=== PATIENT | female | born 1970 | race Caucasian/White ===

== ENCOUNTER → 2024-07-26 11:59 | Outpatient (CLI) | payer BC, SELFPAY ==
--- NOTE | 2024-07-26 12:00 | DI.US.S_ITS ---
PROCEDURE: US BREAST LT LIMITED COMPARISON: Mammogram 03/08/2023, 01/26/2021, 08/15/2018, 09/08/2016, 09/08/2015 INDICATIONS: There are stable postsurgical changes in the left breast. Status post left breast lumpectomy. No mammogram 04/27/2023, 04/30/2021, 03/26/2020, 02/07/2019, 01/31/2019, 02/14/2018, 01/30/2018 FINDINGS: There postsurgical changes in the by about in the bilateral breasts from prior reduction mammoplasty. No status post bilateral reduction mammoplasty. No mammogram 12/21/2021, 12/21/2020, 09/03/2019, 04/09/2018 IMPRESSION: Mammogram 11/30/2022, 06/11/2021, 02/08/2018, 11/24/2016, 08/22/2014 Dictated by: Marian Vizcarra M.D.,Ph.D. on 07/26/2024 at 12:56 Approved by: Marian Vizcarra M.D.,Ph.D. on 07/26/2024 at 14:12
--- NOTE | 2024-07-26 12:00 | DI.MG.S_ITS ---
UNILATERAL LEFT DIGITAL DIAGNOSTIC MAMMOGRAM 3D/2D WITH ADDITIONAL VIEWS: 07/26/2024 CLINICAL: Additional evaluation requested from prior study. Comparison is made to exams dated: 02/23/2024 mammogram - [facility] and 03/08/2022 mammogram - [facility]. There are scattered areas of fibroglandular density (category b / 25%-50% glandular tissue). There is a focal asymmetry in the left breast at 3 o'clock posterior depth. This is seen in additional views. No other significant masses or calcifications are seen in the breast. IMPRESSION: INCOMPLETE: NEED ADDITIONAL IMAGING EVALUATION The focal asymmetry in the left breast is indeterminate. An ultrasound is recommended for further evaluation and is scheduled to immediately follow this examination. Based on the Tyrer Cuzick model (a risk assessment model) the patient's lifetime risk is 10.4% and her 10 year risk is 3.2%. According to the ACR, ACS, and NCCN guidelines, an annual breast MRI exam along with mammogram is recommended if the patient's lifetime risk is 20% or greater. This exam was interpreted at Station ID: [id number]. NOTE: For mammograms, a report in lay terms will be sent to the patient. Approximately 15% of breast malignancies will not be visualized mammographically. In the management of a palpable breast mass, a negative mammogram must not discourage biopsy of a clinically suspicious lesion. Electronically Signed By: Marian Vizcarra M.D., Ph.D. eb/:07/27/2024 17:08:01 letter sent: Additional Imaging Needed ACR BI-RADS Category 0: Incomplete: Need Additional Imaging Evaluation
--- NOTE | 2024-07-26 12:45 | DI.US.S_ITS ---
Patient Name: TERENCE DENNY date: 1970 Sex: F Attending Physician: Sachin Indications: Date: 07/27/2024 17:10 At the request of: GEORGE URIBE Procedure: US breast LT limited LIMITED ULTRASOUND OF LEFT BREAST: 07/26/2024 CLINICAL: Patient returns today to evaluate a focal asymmetry in the left breast. Comparison is made to exams dated: 07/26/2024 mammogram - [facility], 02/23/2024 mammogram - [facility], and 03/08/2022 mammogram - [facility]. Color flow and real-time ultrasound of the left breast 3 o'clock region were performed. Santamaria scale images of the real-time examination were reviewed. There are benign clustered microcysts in the left breast at 3 o'clock 15 cm from the nipple measuring up to 1.2 cm. This correlates with mammography findings. IMPRESSION: BENIGN Left breast 1.2 cm clustered microcysts at 3 o'clock are benign. No mammographic or sonographic evidence of malignancy. A 1 year screening mammogram is recommended. Findings and recommendations were conveyed to the patient during today's evaluation. This exam was interpreted at Station ID: [id number]. Electronically Signed By: Marian Vizcarra M.D., Ph.D. eb/:07/27/2024 17:10:22 letter sent: Normal Exam ACR BI-RADS Category 2: Benign
== END ==
PROVIDERS: PCP Family Medicine; Referring Provider Family Medicine; Visit Provider Family Medicine
DX: R92.8 Other abnormal and inconclusive findings on diagnostic imaging of breast (principal)
CPT/HCPCS: 76642; 77065; G0279